=== PATIENT | male | born 1990 | race Caucasian/White ===

== ENCOUNTER 2018-11-17 19:59 | Emergency (ER) | payer OTHER ==
[2018-11-17] MEDS ORDERED: LET GEL TOPICAL 1 EA SYR TP ONE ×2 (20:10→20:35)
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
[2018-11-24 17:52] VITALS: BP 131/69
== END 2018-11-17 21:40 | disposition home or self-care (01) ==
PROC: 0HQ0XZZ Repair Scalp Skin, External Approach (ICD-10-PCS; principal; 2018-11-17)
DX: S01.01XA Laceration without foreign body of scalp, initial encounter (principal); V18.0XXA Pedal cycle driver injured in noncollision transport accident in nontraffic accident, initial encounter; Y93.55 Activity, bike riding; Y92.480 Sidewalk as the place of occurrence of the external cause